=== PATIENT | female | born 1965 | race African-American/Black ===

== ENCOUNTER 2018-01-13 10:25 | Inpatient (IN) | payer OTHER ==
[2018-01-13] MEDS ORDERED: IPRATROPIUM (NEB) 0.5 MG/2.5 ML AMP (11:08)
[2018-01-13] MEDS ORDERED: ALBUTEROL 0.5% (NEB) 2.5 MG/0.5 ML AMP (11:08)
[2018-01-13] MEDS: IPRATROPIUM (NEB) 0.5 MG/2.5 ML AMP INH ×2 (11:11→13:21)
[2018-01-13] MEDS: ALBUTEROL 0.5% (NEB) 2.5 MG/0.5 ML AMP INH ×2 (11:11→13:21)
[2018-01-13] MEDS: METHYLPREDNISOLONE 125 MG INJ IV (11:48)
[2018-01-13] MEDS: MAGNESIUM SULFATE 2 GM/50 ML 50 ML IVPB (12:07)
[2018-01-13] MEDS: SOD CHLORIDE 0.9% 1,000 ML IV ×2 (12:53→16:53)
[2018-01-13] MEDS ORDERED: ONDANSETRON 4 MG INJ IV ×2 (13:00→17:30)
[2018-01-13 13:40] LABS: HEMATOCRIT 38.3 % (37.0-47.0); HEMOGLOBIN 12.4 g/dl (12.0-16.0); MEAN CORPUSCULAR HEMOGLOBIN 25.5 pg (29.0-33.0); MEAN CORPUSCULAR HGB CONC 32.4 g/dl (32.0-37.0); MEAN CORPUSCULAR VOLUME 78.6 fl (82.0-101.0); PLATELET COUNT 181 10^3/UL (140-415); RED BLOOD COUNT 4.87 10^6/ul (4.20-5.40); RED CELL DISTRIBUTION WIDTH 15.3 % (11.5-14.5)
[2018-01-13 13:40] LABS: WHITE BLOOD COUNT 6.1 10^3/ul (4.8-10.8)
[2018-01-13 13:44] LABS: ADD MAN DIFF? YES; POSITIVE DIFF @See below
[2018-01-13 14:04] LABS: ANION GAP 15 (8-16); BLOOD UREA NITROGEN 13 mg/dl (7-20); CARBON DIOXIDE 29 mmol/L (21-31); CHLORIDE 98 mmol/L (97-110); CREATININE 0.76 mg/dl (0.44-1.00); GLUCOSE 149 mg/dl (70-220); SODIUM 139 mmol/L (135-144)
[2018-01-13] MEDS: CEFTRIAXONE 1 GM/50 ML (PMX) 50 ML IVPB (14:04)
[2018-01-13 14:06] LABS: LACTIC ACID 1.6 mmol/L (0.5-2.0)
[2018-01-13 14:09] LABS: ANISOCYTOSIS 1+ (0-0); BAND NEUTROPHILS #M 0.2 10^3/ul (0.0-0.6); BAND NEUTROPHILS % (M) 4 % (0-4); BASOPHILS % (M) 1 % (0-2); ERYTHROBLAST% (NRBC) (M) 1 % (0-0); HYPOCHROMASIA 1+ (0-0); LYMPHOCYTES #M 1.9 10^3/ul (0.8-2.9); LYMPHOCYTES % (M) 32 % (15-51); MONOCYTES % (M) 1 % (0-11); PLATELET ESTIMATE NORMAL; POLYCHROMASIA 1+ (0-0); REACTIVE LYMPHOCYTES #M 0.3 10^3/ul (0.0-0.0); REACTIVE LYMPHOCYTES% (M) 5 % (0-0); SEG NEUT #M 3.5 10^3/ul (1.6-7.5); SEGMENTED NEUTROPHILS (M) % 57 % (39-77); SMUDGE%M 7 % (0-0); TARGET CELLS 1+ (0-0)
[2018-01-13] MEDS: AZITHROMYCIN 500MG/NS (PMX) 250 ML IV (14:38)
[2018-01-13] MEDS: ACETAMINOPHEN 325 MG TAB PO (15:29)
[2018-01-13 16:22] LABS: LACTIC ACID 4.6 mmol/L (0.5-2.0)
[2018-01-13] MEDS ORDERED: MAGNESIUM HYDROXIDE 30ML CUP PO (17:30)
[2018-01-13] MEDS ORDERED: ACETAMINOPHEN 325 MG TAB PO (17:30)
[2018-01-13] MEDS ORDERED: LORAZEPAM 2 MG INJ IV (17:30)
[2018-01-13] MEDS ORDERED: NACL 0.9% 3 ML SYG IV (17:30)
[2018-01-13] MEDS ORDERED: DOCUSATE SODIUM 100 MG CAP PO (17:30)
[2018-01-13] MEDS ORDERED: HYDROCODONE/APAP (5/325) TAB PO (17:30)
[2018-01-13] MEDS ORDERED: NA PHOSPHATE/BIPHOS 133 ML ENEMA PR (17:30)
[2018-01-13] MEDS ORDERED: NITROGLYCERIN (SL) 0.4 MG TAB SL (17:30)
[2018-01-13] MEDS ORDERED: morphine 2 MG INJ IV (17:30)
[2018-01-13] MEDS ORDERED: METHYLPREDNISOLONE 125 MG INJ IV (18:00)
[2018-01-13 18:06] LABS: FREE T4 (FREE THYROXINE) 0.97 ng/dl (0.64-1.79)
[2018-01-13] MEDS: LEVOFLOXACIN 750MG/D5W (PMX) 150 ML IVPB (19:09)
[2018-01-13] MEDS: SODIUM CHLORIDE 0.9% 1L BAG IV* (19:10)
[2018-01-13] MEDS: TOPIRAMATE SPRINKLE 25 MG CAP PO (21:00)
[2018-01-13] MEDS ORDERED: HEPARIN 5,000 UNIT/0.5 ML VIAL SC (21:00)
[2018-01-13] MEDS: AMITRIPTYLINE 50 MG TAB PO (21:00)
[2018-01-13] MEDS: SALMETEROL/FLUTICASONE 250/50 INHA INH (21:01)
[2018-01-13] MEDS: BENAZEPRIL 40 MG TAB PO (21:01)
[2018-01-13 22:48] LABS: LACTIC ACID 5.1 mmol/L (0.5-2.0)
[2018-01-14] MEDS: ALBUTEROL/IPRATROPIUM (NEB) 3 ML AMP HHN ×7 (00:23→20:56)
[2018-01-14] MEDS: SOD CHLORIDE 0.45% 1,000 ML IV ×3 (00:23→20:20)
[2018-01-14 05:41] LABS: ADD MAN DIFF? NO
[2018-01-14 06:05] LABS: WHITE BLOOD COUNT 5.5 10^3/ul (4.8-10.8)
[2018-01-14 06:05] LABS: BASOPHILS % 0.2 % (0.0-2.0); HEMATOCRIT 34.6 % (37.0-47.0); HEMOGLOBIN 11.1 g/dl (12.0-16.0); LYMPHOCYTES # 1.6 10^3/ul (0.8-2.9); LYMPHOCYTES % 28.4 % (15.0-51.0); MEAN CORPUSCULAR HEMOGLOBIN 25.3 pg (29.0-33.0); MEAN CORPUSCULAR HGB CONC 32.1 g/dl (32.0-37.0); MEAN CORPUSCULAR VOLUME 78.8 fl (82.0-101.0); MEAN PLATELET VOLUME 11.9 fl (7.4-10.4); MONOCYTE # 0.7 10^3/ul (0.3-0.9); MONOCYTES % 11.8 % (0.0-11.0); NEUTROPHIL # 3.2 10^3/ul (1.6-7.5); PLATELET COUNT 181 10^3/UL (140-415); RED BLOOD COUNT 4.39 10^6/ul (4.20-5.40); RED CELL DISTRIBUTION WIDTH 15.4 % (11.5-14.5)
[2018-01-14 06:18] LABS: CHOLESTEROL 222 mg/dl (100-200)
[2018-01-14 06:18] LABS: CHOL/HDL RATIO 4.1 RATIO; HDL CHOLESTEROL 53 mg/dl (37-92); LDL CHOLESTEROL,CALCULATED 150 mg/dl; TRIGLYCERIDES 93 mg/dl (0-149)
[2018-01-14 06:53] LABS: ALANINE AMINOTRANSFERASE 33 IU/L (13-69); ALBUMIN 4.1 g/dl (3.3-4.9); ALBUMIN/GLOBULIN RATIO 1.36; ALKALINE PHOSPHATASE 80 IU/L (42-121); ANION GAP 13 (8-16); ASPARTATE AMINO TRANSFERASE 27 IU/L (15-46); BLOOD UREA NITROGEN 10 mg/dl (7-20); CALCIUM 10.4 mg/dl (8.4-10.2); CARBON DIOXIDE 30 mmol/L (21-31); CHLORIDE 103 mmol/L (97-110); CREATININE 0.61 mg/dl (0.44-1.00); GLUCOSE 151 mg/dl (70-220); POTASSIUM 3.9 mmol/L (3.5-5.1); SODIUM 142 mmol/L (135-144); TOTAL PROTEIN 7.1 g/dl (6.1-8.1)
[2018-01-14 07:19] LABS: LACTIC ACID 2.5 mmol/L (0.5-2.0)
[2018-01-14 07:56] LABS: PHOSPHORUS 3.8 mg/dl (2.5-4.9)
[2018-01-14 07:56] LABS: MAGNESIUM 2.2 mg/dl (1.7-2.5)
[2018-01-14 09:56] LABS: HEMOGLOBIN A1C 5.7 % (0-5.9)
[2018-01-14] MEDS: SALMETEROL/FLUTICASONE 250/50 INHA INH ×2 (11:03→21:19)
[2018-01-14] MEDS: predniSONE 20 MG TAB PO (11:05)
[2018-01-14] MEDS: HYDROCHLOROTHIAZIDE 25 MG TAB PO (11:06)
[2018-01-14] MEDS: TIOTROPIUM 18 MCG CAPSULE INHA DEV INH (11:07)
[2018-01-14] MEDS: BENAZEPRIL 40 MG TAB PO (11:11)
[2018-01-14] MEDS: ENOXAPARIN 40 MG/0.4 ML SYG SC (11:39)
[2018-01-14] MEDS: ELVITEG/COBI/EMTRIC/TENOFO ALA 1 EACH TABLET PO (12:30)
[2018-01-14 15:43] LABS: LACTIC ACID 3.1 mmol/L (0.5-2.0)
[2018-01-14] MEDS: SOD CHLORIDE 0.9% IV (17:35)
[2018-01-14] MEDS: GUAIFENESIN LA 600 MG TABSR PO (17:35)
[2018-01-14] MEDS: LEVOFLOXACIN 750MG/D5W (PMX) 150 ML IVPB (20:20)
[2018-01-14] MEDS: GUAIFENESIN 20 MG/ML 5ML CUP PO (20:29)
[2018-01-14] MEDS: AMITRIPTYLINE 50 MG TAB PO (21:19)
[2018-01-14] MEDS: TOPIRAMATE SPRINKLE 25 MG CAP PO (21:19)
[2018-01-15] MEDS: ALBUTEROL/IPRATROPIUM (NEB) 3 ML AMP HHN ×5 (00:48→17:09)
[2018-01-15] MEDS: SOD CHLORIDE 0.45% 1,000 ML IV ×3 (01:55→23:36)
[2018-01-15 05:21] LABS: ADD MAN DIFF? NO
[2018-01-15 05:28] LABS: WHITE BLOOD COUNT 7.2 10^3/ul (4.8-10.8)
[2018-01-15 05:28] LABS: BASOPHILS % 0.3 % (0.0-2.0); HEMOGLOBIN 11.3 g/dl (12.0-16.0); LYMPHOCYTES # 1.9 10^3/ul (0.8-2.9); LYMPHOCYTES % 25.8 % (15.0-51.0); MEAN CORPUSCULAR HEMOGLOBIN 25.7 pg (29.0-33.0); MEAN CORPUSCULAR HGB CONC 32.3 g/dl (32.0-37.0); MEAN CORPUSCULAR VOLUME 79.5 fl (82.0-101.0); MEAN PLATELET VOLUME 11.4 fl (7.4-10.4); MONOCYTE # 0.6 10^3/ul (0.3-0.9); MONOCYTES % 8.6 % (0.0-11.0); NEUTROPHIL # 4.4 10^3/ul (1.6-7.5); NEUTROPHILS % 61.1 % (39.0-77.0); PLATELET COUNT 180 10^3/UL (140-415); RED CELL DISTRIBUTION WIDTH 15.4 % (11.5-14.5)
[2018-01-15] MEDS: hydrALAzine 20 MG INJ IV (06:01)
[2018-01-15 06:03] LABS: ANION GAP 14 (8-16); BLOOD UREA NITROGEN 10 mg/dl (7-20); CALCIUM 9.9 mg/dl (8.4-10.2); CARBON DIOXIDE 29 mmol/L (21-31); CHLORIDE 105 mmol/L (97-110); CREATININE 0.67 mg/dl (0.44-1.00); GLUCOSE 142 mg/dl (70-220); POTASSIUM 3.7 mmol/L (3.5-5.1); SODIUM 144 mmol/L (135-144)
[2018-01-15] MEDS: TIOTROPIUM 18 MCG CAPSULE INHA DEV INH (09:37)
[2018-01-15] MEDS: SALMETEROL/FLUTICASONE 250/50 INHA INH ×2 (09:37→20:56)
[2018-01-15] MEDS: predniSONE 20 MG TAB PO (09:39)
[2018-01-15] MEDS: BENAZEPRIL 40 MG TAB PO (09:40)
[2018-01-15] MEDS: HYDROCHLOROTHIAZIDE 25 MG TAB PO (09:41)
[2018-01-15] MEDS: GUAIFENESIN LA 600 MG TABSR PO ×2 (09:41→20:56)
[2018-01-15] MEDS: ELVITEG/COBI/EMTRIC/TENOFO ALA 1 EACH TABLET PO (09:42)
[2018-01-15] MEDS: ENOXAPARIN 40 MG/0.4 ML SYG SC (12:24)
[2018-01-15 13:16] LABS: LACTIC ACID 3.3 mmol/L (0.5-2.0)
[2018-01-15] MEDS: LEVOFLOXACIN 750MG/D5W (PMX) 150 ML IVPB (18:00)
[2018-01-15] MEDS: AMITRIPTYLINE 50 MG TAB PO (20:56)
[2018-01-15] MEDS: TOPIRAMATE SPRINKLE 25 MG CAP PO (20:56)
[2018-01-16 05:41] LABS: WHITE BLOOD COUNT 7.9 10^3/ul (4.8-10.8)
[2018-01-16 05:41] LABS: ABNORMAL IP MESSAGE 1; HEMATOCRIT 35.2 % (37.0-47.0); HEMOGLOBIN 11.5 g/dl (12.0-16.0); MEAN CORPUSCULAR HEMOGLOBIN 25.4 pg (29.0-33.0); MEAN CORPUSCULAR HGB CONC 32.7 g/dl (32.0-37.0); MEAN CORPUSCULAR VOLUME 77.9 fl (82.0-101.0); MEAN PLATELET VOLUME 11.1 fl (7.4-10.4); NUCLEATED RED BLOOD CELLS% 0.3 /100WBC (0.0-0.0); PLATELET COUNT 219 10^3/UL (140-415); RED BLOOD COUNT 4.52 10^6/ul (4.20-5.40); RED CELL DISTRIBUTION WIDTH 15.9 % (11.5-14.5)
[2018-01-16] MEDS: LEVOFLOXACIN 750 MG TABLET PO (05:41)
[2018-01-16 05:59] LABS: ANION GAP 15 (8-16); BLOOD UREA NITROGEN 12 mg/dl (7-20); CALCIUM 10.6 mg/dl (8.4-10.2); CARBON DIOXIDE 27 mmol/L (21-31); CHLORIDE 101 mmol/L (97-110); GLUCOSE 122 mg/dl (70-220); POTASSIUM 3.7 mmol/L (3.5-5.1); SODIUM 139 mmol/L (135-144)
[2018-01-16 06:25] LABS: LACTIC ACID 2.4 mmol/L (0.5-2.0)
[2018-01-16 06:46] LABS: POSITIVE DIFF @See below
[2018-01-16 06:47] LABS: ADD MAN DIFF? YES
[2018-01-16] MEDS: TIOTROPIUM 18 MCG CAPSULE INHA DEV INH (08:26)
[2018-01-16] MEDS: ELVITEG/COBI/EMTRIC/TENOFO ALA 1 EACH TABLET PO (08:27)
[2018-01-16] MEDS: SALMETEROL/FLUTICASONE 250/50 INHA INH ×2 (08:27→20:54)
[2018-01-16] MEDS: HYDROCHLOROTHIAZIDE 25 MG TAB PO (08:29)
[2018-01-16] MEDS: predniSONE 20 MG TAB PO (08:30)
[2018-01-16] MEDS: BENAZEPRIL 40 MG TAB PO (08:30)
[2018-01-16] MEDS: GUAIFENESIN LA 600 MG TABSR PO ×2 (08:30→20:57)
[2018-01-16] MEDS: ENOXAPARIN 40 MG/0.4 ML SYG SC (08:32)
[2018-01-16 09:22] LABS: BAND NEUTROPHILS #M 0.1 10^3/ul (0.0-0.6); BAND NEUTROPHILS % (M) 2 % (0-4); LYMPHOCYTES #M 2.5 10^3/ul (0.8-2.9); LYMPHOCYTES % (M) 32 % (15-51); MONOCYTE #M 1.1 10^3/ul (0.3-0.9); MONOCYTES % (M) 14 % (0-11); PLATELET ESTIMATE NORMAL; SEG NEUT #M 4.1 10^3/ul (1.6-7.5); SEGMENTED NEUTROPHILS (M) % 52 % (39-77); SMUDGE%M 4 % (0-0)
[2018-01-16 12:37] LABS: LACTIC ACID 2.2 mmol/L (0.5-2.0)
[2018-01-16] MEDS: SOD CHLORIDE 0.45% 1,000 ML IV (14:16)
[2018-01-16] MEDS ORDERED: NICOTINE (14 MG/24 HR) PATCH TRANSDERM (15:30)
[2018-01-16] MEDS: ALBUTEROL HFA 8 GM INHALER INH ×4 (18:40→23:11)
[2018-01-16] MEDS: GUAIFENESIN 20 MG/ML 5ML CUP PO (20:52)
[2018-01-16] MEDS: OXYMETAZOLINE 0.05% 15 ML NAS SPRAY NASAL (20:55)
[2018-01-16] MEDS: AMITRIPTYLINE 50 MG TAB PO (20:57)
[2018-01-16] MEDS: TOPIRAMATE SPRINKLE 25 MG CAP PO (20:57)
[2018-01-17] MEDS: ALBUTEROL HFA 8 GM INHALER INH ×5 (01:00→08:05)
[2018-01-17] MEDS: LEVOFLOXACIN 750 MG TABLET PO (05:53)
[2018-01-17 06:52] LABS: INR 0.99; PROTIME 13.2 Sec (11.9-14.9)
[2018-01-17 06:56] LABS: ABNORMAL IP MESSAGE 1; HEMATOCRIT 37.3 % (37.0-47.0); HEMOGLOBIN 12.2 g/dl (12.0-16.0); MEAN CORPUSCULAR HEMOGLOBIN 25.4 pg (29.0-33.0); MEAN CORPUSCULAR HGB CONC 32.7 g/dl (32.0-37.0); MEAN CORPUSCULAR VOLUME 77.5 fl (82.0-101.0); MEAN PLATELET VOLUME 11.1 fl (7.4-10.4); NUCLEATED RED BLOOD CELLS% 0.2 /100WBC (0.0-0.0); PLATELET COUNT 253 10^3/UL (140-415); RED BLOOD COUNT 4.81 10^6/ul (4.20-5.40); RED CELL DISTRIBUTION WIDTH 15.7 % (11.5-14.5)
[2018-01-17 06:56] LABS: WHITE BLOOD COUNT 9.3 10^3/ul (4.8-10.8)
[2018-01-17 06:58] LABS: ALANINE AMINOTRANSFERASE 47 IU/L (13-69); ALBUMIN 4.1 g/dl (3.3-4.9); ALBUMIN/GLOBULIN RATIO 1.24; ALKALINE PHOSPHATASE 75 IU/L (42-121); ASPARTATE AMINO TRANSFERASE 42 IU/L (15-46); BILIRUBIN,INDIRECT 0.1 mg/dl (0-1.1); BILIRUBIN,TOTAL 0.1 mg/dl (0.2-1.3); BLOOD UREA NITROGEN 17 mg/dl (7-20); CALCIUM 10.8 mg/dl (8.4-10.2); CARBON DIOXIDE 29 mmol/L (21-31); CHLORIDE 100 mmol/L (97-110); CREATININE 0.84 mg/dl (0.44-1.00); GLUCOSE 133 mg/dl (70-220); MAGNESIUM 2.1 mg/dl (1.7-2.5); PHOSPHORUS 4.4 mg/dl (2.5-4.9); SODIUM 138 mmol/L (135-144); TOTAL PROTEIN 7.4 g/dl (6.1-8.1)
[2018-01-17 07:06] LABS: LACTIC ACID 2.4 mmol/L (0.5-2.0)
[2018-01-17 07:10] LABS: FREE T4 (FREE THYROXINE) 0.66 ng/dl (0.64-1.79)
[2018-01-17 07:18] LABS: POSITIVE DIFF @See below
[2018-01-17 07:19] LABS: ADD MAN DIFF? YES
[2018-01-17 07:31] LABS: ANION GAP 13 (8-16); POTASSIUM 3.7 mmol/L (3.5-5.1)
[2018-01-17] MEDS: hydrALAzine 20 MG INJ IV (07:54)
[2018-01-17] MEDS: SALMETEROL/FLUTICASONE 250/50 INHA INH (07:55)
[2018-01-17] MEDS: TIOTROPIUM 18 MCG CAPSULE INHA DEV INH (07:56)
[2018-01-17] MEDS: OXYMETAZOLINE 0.05% 15 ML NAS SPRAY NASAL (07:57)
[2018-01-17] MEDS: GUAIFENESIN LA 600 MG TABSR PO (07:59)
[2018-01-17] MEDS: predniSONE 20 MG TAB PO (08:00)
[2018-01-17] MEDS: BENAZEPRIL 40 MG TAB PO (08:02)
[2018-01-17 09:00] LABS: TRIIODOTHYRONINE 0.68 ng/ml (0.97-1.69)
[2018-01-17] MEDS: ELVITEG/COBI/EMTRIC/TENOFO ALA 1 EACH TABLET PO (09:35)
[2018-01-17] MEDS: HYDROCHLOROTHIAZIDE 25 MG TAB PO (09:38)
[2018-01-17] MEDS: ENOXAPARIN 40 MG/0.4 ML SYG SC (09:41)
[2018-01-17 09:42] LABS: BAND NEUTROPHILS #M 0.2 10^3/ul (0.0-0.6); BAND NEUTROPHILS % (M) 3 % (0-4); ERYTHROBLAST% (NRBC) (M) 1 % (0-0); GIANT THROMBO% (M) 1 % (0-0); LYMPHOCYTES #M 2.6 10^3/ul (0.8-2.9); LYMPHOCYTES % (M) 29 % (15-51); METAMYELOCYTES %M 1 % (0-0); MONOCYTE #M 0.6 10^3/ul (0.3-0.9); MONOCYTES % (M) 7 % (0-11); PLATELET ESTIMATE NORMAL; PROMYELOCYTES % (M) 1 % (0-0); REACTIVE LYMPHOCYTES% (M) 11 % (0-0); SEG NEUT #M 4.5 10^3/ul (1.6-7.5); SEGMENTED NEUTROPHILS (M) % 48 % (39-77); SMUDGE%M 9 % (0-0)
== END 2018-01-17 10:50 | disposition home or self-care (01) | DRG 975 ==
LOC: MS3 12:59 → FTE 10:25
PROVIDERS: Family Medicine
DX: B20 Human immunodeficiency virus [HIV] disease (principal); J15.4 Pneumonia due to other streptococci; J44.1 Chronic obstructive pulmonary disease with (acute) exacerbation; E87.2 Acidosis; I10 Essential (primary) hypertension; E66.9 Obesity, unspecified; H54.40 Blindness, one eye, unspecified eye; Z68.34 Body mass index [BMI] 34.0-34.9, adult; E88.81 Metabolic syndrome and other insulin resistance; F17.200 Nicotine dependence, unspecified, uncomplicated
CPT/HCPCS: 36415; 71045; 80048; 80053; 80061; 83036; 83605; 83735; 84100; 84439; 84443; 84480; 84703; 85025; 85610; 87040; 87400; 94640; 94644; 94645; 94664; 96365; 96366; 96375; 97162; 99291-25

== ENCOUNTER 2019-04-05 20:18 | Inpatient (IN) | payer OTHER ==
[2019-04-05] MEDS: KETOROLAC 30 MG INJ IV (21:46)
[2019-04-06] MEDS ORDERED: NACL 0.9% 3 ML SYG IV
[2019-04-06] MEDS: DEXTROSE 5%-0.45% NACL 1,000 ML IV ×5 (00:26→21:27)
[2019-04-06] MEDS: PIPER-TAZO 3.375 GM IV (PMX) 100 ML IVPB ×5 (00:27→23:25)
[2019-04-06] MEDS: morphine 2 MG INJ IV ×4 (05:32→21:27)
[2019-04-06 05:48] LABS: ADD MAN DIFF? NO
[2019-04-06 05:52] LABS: BASOPHILS % 0.3 % (0.0-2.0); EOSINOPHILS # 0.1 10^3/ul (0.0-0.5); EOSINOPHILS % 0.8 % (0.0-7.0); HEMATOCRIT 32.5 % (37.0-47.0); HEMOGLOBIN 10.2 g/dl (12.0-16.0); LYMPHOCYTES # 1.7 10^3/ul (0.8-2.9); LYMPHOCYTES % 23.1 % (15.0-51.0); MEAN CORPUSCULAR HEMOGLOBIN 27.2 pg (29.0-33.0); MEAN CORPUSCULAR HGB CONC 31.4 g/dl (32.0-37.0); MEAN CORPUSCULAR VOLUME 86.7 fl (82.0-101.0); MEAN PLATELET VOLUME 10.8 fl (7.4-10.4); MONOCYTE # 0.8 10^3/ul (0.3-0.9); MONOCYTES % 11.6 % (0.0-11.0); NEUTROPHIL # 4.6 10^3/ul (1.6-7.5); NEUTROPHILS % 63.4 % (39.0-77.0); PLATELET COUNT 213 10^3/UL (140-415); RED BLOOD COUNT 3.75 10^6/ul (4.20-5.40); RED CELL DISTRIBUTION WIDTH 13.1 % (11.5-14.5)
[2019-04-06 05:52] LABS: WHITE BLOOD COUNT 7.2 10^3/ul (4.8-10.8)
[2019-04-06 06:19] LABS: ALANINE AMINOTRANSFERASE 20 IU/L (13-69); ALBUMIN 3.7 g/dl (3.3-4.9); ALBUMIN/GLOBULIN RATIO 1.37; ALKALINE PHOSPHATASE 83 IU/L (42-121); ANION GAP 8 (5-13); ASPARTATE AMINO TRANSFERASE 31 IU/L (15-46); BILIRUBIN,INDIRECT 0.4 mg/dl (0-1.1); BILIRUBIN,TOTAL 0.4 mg/dl (0.2-1.3); BLOOD UREA NITROGEN 15 mg/dl (7-20); CALCIUM 9.1 mg/dl (8.4-10.2); CARBON DIOXIDE 28 mmol/L (21-31); CHLORIDE 103 mmol/L (97-110); CREATININE 0.91 mg/dl (0.44-1.00); Estimated GFR > 60 mL/min (>60); GLUCOSE 108 mg/dl (70-220); MAGNESIUM 1.7 mg/dl (1.7-2.5); PHOSPHORUS 4.2 mg/dl (2.5-4.9); POTASSIUM 3.6 mmol/L (3.5-5.1); SODIUM 139 mmol/L (135-144); TOTAL PROTEIN 6.4 g/dl (6.1-8.1)
[2019-04-06] MEDS: TIOTROPIUM 18 MCG CAPSULE INHA DEV INH (15:09)
[2019-04-06] MEDS: ALBUTEROL/IPRATROPIUM (NEB) 3 ML AMP HHN (15:34)
[2019-04-06] MEDS: ACETAMINOPHEN 325 MG TAB PO ×2 (16:08→21:27)
[2019-04-06] MEDS: ELVITEG/COBI/EMTRIC/TENOFO ALA 1 EACH TABLET PO (18:38)
[2019-04-07] MEDS: GUAIFENESIN/CODEINE 5ML CUP PO ×3 (01:08→18:16)
[2019-04-07] MEDS: PIPER-TAZO 3.375 GM IV (PMX) 100 ML IVPB ×3 (05:31→18:07)
[2019-04-07 05:36] LABS: ADD MAN DIFF? NO
[2019-04-07 05:47] LABS: WHITE BLOOD COUNT 8.1 10^3/ul (4.8-10.8)
[2019-04-07 05:47] LABS: BASOPHILS % 0.4 % (0.0-2.0); EOSINOPHILS % 0.5 % (0.0-7.0); HEMATOCRIT 32.9 % (37.0-47.0); HEMOGLOBIN 10.5 g/dl (12.0-16.0); LYMPHOCYTES # 1.5 10^3/ul (0.8-2.9); LYMPHOCYTES % 18.2 % (15.0-51.0); MEAN CORPUSCULAR HEMOGLOBIN 27.4 pg (29.0-33.0); MEAN CORPUSCULAR HGB CONC 31.9 g/dl (32.0-37.0); MEAN CORPUSCULAR VOLUME 85.9 fl (82.0-101.0); MEAN PLATELET VOLUME 11.1 fl (7.4-10.4); MONOCYTE # 0.9 10^3/ul (0.3-0.9); MONOCYTES % 11.3 % (0.0-11.0); NEUTROPHIL # 5.6 10^3/ul (1.6-7.5); PLATELET COUNT 204 10^3/UL (140-415); RED BLOOD COUNT 3.83 10^6/ul (4.20-5.40); RED CELL DISTRIBUTION WIDTH 13.2 % (11.5-14.5)
[2019-04-07 06:03] LABS: ANION GAP 7 (5-13); BLOOD UREA NITROGEN 5 mg/dl (7-20); CALCIUM 8.9 mg/dl (8.4-10.2); CARBON DIOXIDE 28 mmol/L (21-31); CHLORIDE 106 mmol/L (97-110); CREATININE 0.69 mg/dl (0.44-1.00); Estimated GFR > 60 mL/min (>60); GLUCOSE 116 mg/dl (70-220); MAGNESIUM 1.9 mg/dl (1.7-2.5); POTASSIUM 3.5 mmol/L (3.5-5.1); SODIUM 141 mmol/L (135-144)
[2019-04-07] MEDS: morphine 2 MG INJ IV (06:40)
[2019-04-07] MEDS: DEXTROSE 5%-0.45% NACL 1,000 ML IV ×2 (09:02→20:41)
[2019-04-07] MEDS: ELVITEG/COBI/EMTRIC/TENOFO ALA 1 EACH TABLET PO (12:32)
[2019-04-07] MEDS: TIOTROPIUM 18 MCG CAPSULE INHA DEV INH (12:33)
[2019-04-07] MEDS: FLUTICASONE/VILANTEROL 100-25 INH (12:33)
[2019-04-07 18:11] LABS: LYMPHOCYTE - % CD4 (HELPER) 47 % (30-61); LYMPHOCYTE - %CD8 (SUPPRESSOR) 30 % (12-42); LYMPHOCYTE - ABSOLUTE 1500 cells/uL (850-3900); LYMPHOCYTE - ABSOLUTE CD4 712 cells/uL (490-1740); LYMPHOCYTE - ABSOLUTE CD8 457 cells/uL (180-1170); LYMPHOCYTE - CD4/CD8 RATIO 1.56 (0.86-5.00)
[2019-04-07] MEDS: ACETAMINOPHEN 325 MG TAB PO (20:31)
[2019-04-07] MEDS: ONDANSETRON 4 MG INJ IV (20:41)
[2019-04-08] MEDS: PIPER-TAZO 3.375 GM IV (PMX) 100 ML IVPB ×4 (00:31→18:12)
[2019-04-08 05:23] LABS: ADD MAN DIFF? NO
[2019-04-08 05:31] LABS: BASOPHILS % 0.2 % (0.0-2.0); EOSINOPHILS % 0.5 % (0.0-7.0); HEMATOCRIT 32.1 % (37.0-47.0); HEMOGLOBIN 10.2 g/dl (12.0-16.0); LYMPHOCYTES # 1.7 10^3/ul (0.8-2.9); LYMPHOCYTES % 20.3 % (15.0-51.0); MEAN CORPUSCULAR HEMOGLOBIN 27.5 pg (29.0-33.0); MEAN CORPUSCULAR HGB CONC 31.8 g/dl (32.0-37.0); MEAN CORPUSCULAR VOLUME 86.5 fl (82.0-101.0); MEAN PLATELET VOLUME 10.7 fl (7.4-10.4); MONOCYTE # 0.8 10^3/ul (0.3-0.9); MONOCYTES % 9.8 % (0.0-11.0); NEUTROPHIL # 5.7 10^3/ul (1.6-7.5); NEUTROPHILS % 68.4 % (39.0-77.0); PLATELET COUNT 206 10^3/UL (140-415); RED BLOOD COUNT 3.71 10^6/ul (4.20-5.40); RED CELL DISTRIBUTION WIDTH 12.9 % (11.5-14.5)
[2019-04-08 05:31] LABS: WHITE BLOOD COUNT 8.4 10^3/ul (4.8-10.8)
[2019-04-08 05:48] LABS: ANION GAP 5 (5-13); BLOOD UREA NITROGEN 2 mg/dl (7-20); CALCIUM 9.1 mg/dl (8.4-10.2); CARBON DIOXIDE 31 mmol/L (21-31); CHLORIDE 107 mmol/L (97-110); Estimated GFR > 60 mL/min (>60); GLUCOSE 125 mg/dl (70-220); POTASSIUM 3.4 mmol/L (3.5-5.1); SODIUM 143 mmol/L (135-144)
[2019-04-08] MEDS: ACETAMINOPHEN 325 MG TAB PO ×2 (05:54→22:11)
[2019-04-08] MEDS: GUAIFENESIN/CODEINE 5ML CUP PO ×2 (05:55→18:13)
[2019-04-08] MEDS: FLUTICASONE/VILANTEROL 100-25 INH (08:21)
[2019-04-08] MEDS: DEXTROSE 5%-0.45% NACL 1,000 ML IV ×2 (08:21→22:39)
[2019-04-08] MEDS: TIOTROPIUM 18 MCG CAPSULE INHA DEV INH (08:21)
[2019-04-08] MEDS: ELVITEG/COBI/EMTRIC/TENOFO ALA 1 EACH TABLET PO (08:22)
[2019-04-08] MEDS: POTASSIUM CHLORIDE (SR) 20 MEQ TAB PO (18:12)
[2019-04-09] MEDS: PIPER-TAZO 3.375 GM IV (PMX) 100 ML IVPB (00:56)
[2019-04-09] MEDS: GUAIFENESIN/CODEINE 5ML CUP PO (03:00)
[2019-04-09] MEDS: ONDANSETRON 4 MG INJ IV (04:46)
== END 2019-04-09 05:10 | disposition home or self-care (01) | DRG 392 ==
LOC: 2NE 20:18
DX: K57.20 Diverticulitis of large intestine with perforation and abscess without bleeding (principal); D64.9 Anemia, unspecified; I10 Essential (primary) hypertension; J44.9 Chronic obstructive pulmonary disease, unspecified
CPT/HCPCS: 80048; 80053; 83735; 84100; 85025; 86360; 87536; 94664